=== PATIENT | female | born 1995 | race Caucasian/White ===

== ENCOUNTER 2019-03-22 18:56 | Emergency (ER) | payer OTHER, BC ==
[~2019-03-22] VITALS: Ht 162.6 cm; Wt 62.8 kg
[~2019-03-22 18:56] MED LIST: ACET325T33 PO; LOPE2CAP PO; NITR-58 PO; ONDA4TAB14 PO; PHEN-547 PO; PRENAT PO
[2019-03-22 19:17] VITALS: Ht 162.6 cm; Wt 62.8 kg
[2019-03-22] MEDS ORDERED: SOD CHLORIDE 0.9% 1,000 ML IV STA (20:07)
[2019-03-22] MEDS ORDERED: ONDANSETRON 4 MG INJ IV STA (20:07)
--- NOTE | 2019-03-22 20:19 | ERD ---
ER Documentation Chief Complaint Chief Complaint just took preg test +; nauseated; LMP january 29; dizzy HPI This is a 23-year-old female patient who presents emergency room with complaint of right lower quadrant pain increasing in severity and duration x3 days. Describes as sharp stabbing and pulling with movement. Home test today was positive. +nausea, +dizziness, no vomiting, no vaginal bleeding. G3 A1 P1, no complications with resulting in live . Pt has OB. LMP 01/29/19. No chronic medical problems, patient does not smoke, no surgical history. ROS All systems reviewed and are negative except as per history of present illness. Medications Home Meds Active Scripts 118/Iron/Folate 6/Dha ([facility] Softgel) 1 Each Capsule, 1 EACH PO DAILY for 30 Days, #30 CAP Prov:YASSINE YOO NP 03/22/19 Doxylamine/Pyridoxine Hcl (DICLEGIS DR 10-10 MG TABLET) 1 Each Tablet.dr, 1 TAB PO DAILY PRN for NAUSEA for 30 Days, #30 TAB Prov:YASSINE YOO NP 03/22/19 Cephalexin* (Keflex*) 500 Mg Capsule, 500 MG PO BID for uti for 7 Days, #14 CAP Prov:YASSINE YOO NP 03/22/19 Acetaminophen* (Tylenol*) 325 Mg Tablet, 325 MG PO Q4H PRN for PAIN AND OR ELEVATED TEMP, #20 TAB Prov:MARILYN LYLES 09/08/16 Belladonna Alkaloids-Phenobarb* (*) 16.2 Mg/5 Ml Elixir, 5 ML PO Q6H PRN for GI SPASMS, #60 ML Prov:MARILYN LYLES 09/08/16 Ondansetron (Ondansetron Odt) 4 Mg Tab.rapdis, 4 MG PO Q6H PRN for NAUSEA AND/OR VOMITING, #10 TAB Prov:RAFALNBA MEIER09/08/16 Loperamide Hcl* (Imodium*) 2 Mg Capsule, 2 MG PO .AFTER EA LOOSE BM PRN for DIARRHEA, #10 TAB Prov:MARILYN LYLES 09/08/16 Nitrofurantoin Monohyd Macrocr* (Macrobid*) 100 Mg Capsr, 100 MG PO BID for 5 Days, CAP Prov:GLADIS ARITA NP 10/29/15 Reported Medications Multivit/Min/Fol Ac/Iron/Pren* ( S*) 1 Tab Tab, 1 TAB PO DAILY, TAB 03/22/16 [None] No Conflict Check 03/19/10 Allergies Allergies: Coded Allergies: No Known Allergies (Verified Allergy, Mild, 03/19/10) PMhx/Soc Medical and Surgical Hx: pt denies Medical Hx, pt denies Surgical Hx History of Surgery: No Anesthesia Reaction: No Hx Neurological Disorder: No Hx Respiratory Disorders: No Hx Cardiac Disorders: No Hx Psychiatric Problems: No Hx Miscellaneous Medical Probl: No Hx Alcohol Use: No Hx Substance Use: No Hx Tobacco Use: No Smoking Status: Never smoker FmHx Family History: No diabetes, No coronary disease, No other Physical Exam Vitals Vital Signs Date Temp Pulse Resp B/P (MAP) Pulse Ox O2 O2 Flow FiO2 Time Delivery Rate 03/22/19 98.8 70 20 115/69 99 Room Air 22:10 (84) 03/22/19 99.1 72 20 110/71 99 19:17 (84) Physical Exam Const: No acute distress Head: Atraumatic Eyes: Normal Conjunctiva, PERRL ENT: Normal External Ears, Nose and Mouth. Pharynx pink, no lesions, no exudate Neck: Full range of motion. No meningismus. No lymphadenopathy, no thyromegaly Resp: Clear to auscultation bilaterally, no wheezing Cardio: Regular rate and rhythm, no murmurs Abd: Soft, non distended. Normal bowel sounds, tenderness with palpation @ RLQ Skin: No petechiae or rashes Back: No midline or flank tenderness, no CVT Neur: Awake and alert Psych: Normal Mood and Affect Result Diagram: 03/22/19 2018 03/22/19 2018 Results 24 hrs Laboratory Tests Test 03/22/19 20:18 White Blood Count 7.9 10^3/ul Red Blood Count 3.69 10^6/ul Hemoglobin 11.0 g/dl Hematocrit 33.1 % Mean Corpuscular Volume 89.7 fl Mean Corpuscular Hemoglobin 29.8 pg Mean Corpuscular Hemoglobin Concent 33.2 g/dl Red Cell Distribution Width 13.1 % Platelet Count 229 10^3/UL Mean Platelet Volume 11.5 fl Immature Granulocytes % 0.100 % Neutrophils % 62.2 % Lymphocytes % 27.8 % Monocytes % 6.7 % Eosinophils % 2.8 % Basophils % 0.4 % Nucleated Red Blood Cells % 0.0 /100WBC Immature Granulocytes # 0.010 10^3/ul Neutrophils # 4.9 10^3/ul Lymphocytes # 2.2 10^3/ul Monocytes # 0.5 10^3/ul Eosinophils # 0.2 10^3/ul Basophils # 0.0 10^3/ul Nucleated Red Blood Cells # 0.0 10^3/ul Urine Color YELLOW Urine Clarity SLIGHTLY CLOUDY Urine pH 5.0 Urine Specific [place] 1.024 Urine Ketones 1+ mg/dL Urine Nitrite NEGATIVE mg/dL Urine Bilirubin NEGATIVE mg/dL Urine Urobilinogen 2+ mg/dL Urine Leukocyte Esterase 1+ Yvan/ul Urine Microscopic RBC 5 /HPF Urine Microscopic WBC 10 /HPF Urine Squamous Epithelial Cells FEW /HPF Urine Mucus FEW /HPF Urine Hemoglobin 1+ mg/dL Urine Glucose NEGATIVE mg/dL Urine Total Protein NEGATIVE mg/dl Sodium Level 140 mmol/L Potassium Level 4.1 mmol/L Chloride Level 104 mmol/L Carbon Dioxide Level 25 mmol/L Anion Gap 11 Blood Urea Nitrogen 7 mg/dl Creatinine 0.55 mg/dl Est Glomerular Filtrat Rate mL/min > 60 mL/min Glucose Level 95 mg/dl Calcium Level 10.0 mg/dl Total Bilirubin 0.4 mg/dl Direct Bilirubin 0.00 mg/dl Indirect Bilirubin 0.4 mg/dl Aspartate Amino Transf (AST/SGOT) 74 IU/L Alanine Aminotransferase (ALT/SGPT) 103 IU/L Alkaline Phosphatase 50 IU/L Total Protein 7.9 g/dl Albumin 4.8 g/dl Globulin 3.10 g/dl Albumin/Globulin Ratio 1.54 Beta HCG, Quantitative 04647.0 mIU/ml Current Medications Medications Dose Sig/Jaci Start Time Status Last (Trade) Ordered Route PRN Stop Time Admin Dose Reason Admin Sodium 1,000 ml @ Q1H STAT 03/22/19 DC 03/22/19 Chloride 1,000 mls/hr IV 20:07 03/22/19 20:33 21:06 Ondansetron 4 mg ONCE STAT 03/22/19 DC 03/22/19 HCl (Zofran IV 20:07 03/22/19 20:33 Inj) 20:13 Cephalexin 500 mg ONCE ONCE 03/22/19 DC 03/22/19 (Keflex) PO 22:00 03/22/19 22:05 22:05 Procedures/MDM This is a 23-year-old female patient who presents emergency room with right lower quadrant pain. Based on patient's LMP and positive test gestation is equivalent to 7 weeks 3 days with COLE 11/05/19. Patient presents with . ED COURSE: The patient was stable throughout ED course. I kept the patient and/or family informed of laboratory and diagnostic imaging results throughout the ED course. DIAGNOSTIC IMAGING: Read by radiologist. US ABDOMEN- IMPRESSION: Appendix not visualized. If there is a high clinical suspicion for appendicitis, MRI is recommended. OB US- IMPRESSION: Single live intrauterine with an estimated gestational age of 6 weeks and 2 days, based on ultrasound measurements. COLE based on ultrasound measurements is 11/13/2019. bradycardia. Close follow-up is recommended. MEDICATIONS GIVEN: Zofran, NS. Patient tolerated medication well with no adverse reactions. Patient reported improvement in pain. MDM: Patient remained stable throughout the ER course. Patient presents with right lower quadrant pain but no vaginal bleeding. Differential includes early normal , ectopic , failed . She will discharged home with recommendations for 2-day recheck of hormones to further evaluate condition. She is to return sooner for fevers, hemorrhaging, new worsening symptoms. Current signs or symptoms do not suggest appendicitis, acute surgical abdomen, additional concerning signs or symptoms or conditions. The patient was stable with no new complaints during the ER course. Clinically, there is no current evidence to suggest meningitis, sepsis, acute abdomen, pneumonia, stroke, acute coronary syndrome, pulmonary embolism, aortic dissection or any other emergent condition appearing to require further evaluation or hospitalization. Patient counseled regarding my diagnostic impression and care plan. Prior to discharge all questions answered. Pt agrees with treatment plan and understands strict return precautions. Pt is instructed to follow up with primary care provider within 24-48 hours. Precautionary instructions provided including instructions to return to the ER if not improving or for any worsening or changing symptoms or concerns. Departure Diagnosis: Primary Impression: UTI in Trimester: first trimester Qualified Codes: O23.41 - Unspecified infection of urinary tract in , first trimester Additional Impression: First trimester Condition: Stable Patient Instructions: Abdominal Pain, Early , Understanding Urinary Tract Infections (UTIs) Referrals: HADADIAN,SEDI Additional Instructions: Thank you very much for allowing us to participate in your care. Your health and safety is our top priority at [facility]. Call your primary care doctor TOMORROW for an appointment during the next 2-4 days and bring all the information and medications prescribed. Have prescriptions filled and follow precisely the directions on the label. If the symptoms get worse and your provider is unavailable, return to the Emergency Department immediately. YOU MUST FOLLOW-UP WITH YOUR PLANT CUSTODIAN IN THE NEXT 2-3 DAYS RETURN TO ER WITH BLEEDING OR SEVERE ABDOMINAL PAIN INCREASE HYDRATION TO 1-2L/DAY TAKE DICLEGIS DIRECTED FOR NAUSEA YASSINE YOO NP Mar 22, 2019 20:19
[2019-03-22] MEDS ORDERED: CEPH-443 PO (21:45)
[2019-03-22] MEDS ORDERED: DOXY1TAB3 PO (21:45)
[2019-03-22] MEDS ORDERED: PREN1CAP31 PO (21:52)
[2019-03-22] MEDS ORDERED: CEPHALEXIN 500 MG CAP PO ONE (22:00)
[2019-03-22 22:10] VITALS: BP 115/69; PULSE 70; RESP 20
== END 2019-03-22 22:10 | disposition home or self-care (01) ==
LOC: FTE 18:56
DX: O23.41 Unspecified infection of urinary tract in pregnancy, first trimester (principal); R10.2 Pelvic and perineal pain; Z3A.01 Less than 8 weeks gestation of pregnancy
CPT/HCPCS: 36415; 76705; 76801; 80053; 81001; 84702; 85025; 86900; 86901; 87086; 96361; 96374; 99285; J2405; J7030